=== PATIENT | male | born 1945 | race African-American/Black ===

== ENCOUNTER 2021-07-12 14:25 | Observation (INO) ==
[~2021-07-12 14:25] MED LIST: LORazepam 2 MG/1 ML VIAL ONE
[2021-07-12] MEDS ORDERED: SODIUM CHLORIDE 0.9% 1,000 ML IV STA (15:12)
[2021-07-12 15:27] LABS: Basophils % 0.3 % (0.0-0.8); Eosinophils % 0.3 % (0.00-10.9); Hematocrit 33.7 VOL% (42.0-52.0); Hemoglobin 11.2 GM/DL (14.0-18.0); Immature Granulocytes % 0.6 %; Immature Granulocytes Absolute 0.04 #; Lymphocytes # 0.6 10*3/uL (1.4-4.0); Lymphocytes % 8.7 % (21.2-54.2); Mean Corpuscular HGB Conc 33.2 GM/DL (32-36); Mean Corpuscular Volume 90.6 FL (87-102); Mean Platelet Volume 10.5 FL (9.6-12.0); Monocytes % 9.4 % (1.7-12.7); Neutrophils % 80.7 % (38.7-73.9); Platelet Count 148 T/CUMM (130-400); Red Blood Count 3.72 MC/CUMM (3.8-5.5); Red Cell Distribution Width 12.6 % (9.3-17.3); White Blood Count 6.5 T/CUMM (4-12)
[2021-07-12 15:32] LABS: INR 0.9; PT Patient Result 10.4 SECS (10.5-12.0); Partial Thromboplastin Time 20.5 SECS (23.8-32.1)
[2021-07-12 15:37] LABS: Alanine Aminotransferase 24 U/L (16-61); Alkaline Phosphatase 227 U/L (45-117); Aspartate Amino Transferase 12 U/L (0-37); Bilirubin,Total < 0.39 MG/DL (0.20-1.00); Blood Urea Nitrogen 25 MG/DL (7-18); Calcium 9.5 MG/DL (8.5-10.1); Carbon Dioxide 26 MMOL/L (21-32); Estimated Glom Filtration Rate 32 ML/MIN; Osmolality,Calculated 298.2 MOS/KG (273-304); Potassium 5.1 MMOL/L (3.5-5.1); Sodium 134 MMOL/L (136-145); Total Protein 7.6 G/DL (6.4-8.2)
[2021-07-12 15:38] LABS: Glucose 587 MG/DL (74-106)
[2021-07-12] MEDS ORDERED: INSULIN REGULAR 100 UNIT/ML IV STA (15:40)
[2021-07-12 15:45] LABS: Carbamazepine (Tegretol) < 0.5 UG/ML (4.0-12.0); Phenytoin (Dilantin) 1.7 UG/ML (10-20); Valproic Acid < 3.0 UG/ML (50-100)
[2021-07-12 16:25] LABS: Bilirubin,Urine Negative (Negative); Blood, Urine Small mg/dL (Negative); Glucose,Urine (UA) >=500 mg/dL (Negative); Ketones,Urine Negative (Negative); Mucus,Urine Occasional /LPF (Occasional); Nitrite,Urine Negative (Negative); Protein,Urine 30 MG/DL; RBC,Urine 2 /HPF (0-4); Urine Appearance CLEAR (Clear); Urine Color Straw (Yellow); Urine Specific Gravity 1.018 (1.001-1.035); Urine Urobilinogen < 2.0 EU/DL (0.2-1.0)
[2021-07-12 16:42] LABS: Barbiturates Screen,Urine Negative (Negative); Benzodiazepines Screen,Urine Positive (Negative); Cannabinoid Screen,Urine Negative (Negative); Opiate Screen,Urine Negative (Negative); Phencyclidine Screen,Urine Negative (Negative)
[2021-07-12] MEDS ORDERED: levETIRAcetam 500 MG/5 ML VIAL IV ONE (17:02)
[2021-07-12] MEDS ORDERED: DEXTROSE 50% 25 GM/50 ML VIAL IV PRN ×2 (18:36)
[2021-07-12] MEDS ORDERED: hydrALAZINE 20 MG/1 ML VIAL IV PRN (18:36)
[2021-07-12] MEDS ORDERED: GLUCAGON 1 MG VIAL IM PRN ×2 (18:36)
[2021-07-12] MEDS ORDERED: DOCUSATE SODIUM 100 MG CAPSULE PO PRN (18:36)
[2021-07-12] MEDS ORDERED: LORazepam 2 MG/1 ML VIAL IV PRN (18:42)
[2021-07-12 19:10] LABS: % Iron Saturation 16.8 % (18-50)
[2021-07-12 19:14] LABS: Folate 16.45 NG/ML (5.38-24.0)
[2021-07-12] MEDS: SODIUM CHLORIDE 0.9% 1,000 ML IV SCH (19:50)
[2021-07-12] MEDS ORDERED: ENOXAPARIN 30 MG/0.3 ML SYRINGE SUBCUT SCH (21:00)
[2021-07-12] MEDS: levETIRAcetam 500 MG TABLET PO SCH (21:20)
[2021-07-12] MEDS: INSULIN REGULAR 100 UNIT/ML SUBCUT SCH (21:21)
[2021-07-13 05:52] LABS: Basophils % 0.2 % (0.0-0.8); Eosinophils # 0.1 10*3/uL (0.0-0.87); Hematocrit 30.8 VOL% (42.0-52.0); Hemoglobin 10.7 GM/DL (14.0-18.0); Immature Granulocytes % 0.3 %; Immature Granulocytes Absolute 0.02 #; Lymphocytes # 1.1 10*3/uL (1.4-4.0); Lymphocytes % 17.9 % (21.2-54.2); Mean Corpuscular HGB Conc 34.7 GM/DL (32-36); Mean Corpuscular Volume 89.3 FL (87-102); Mean Platelet Volume 10.4 FL (9.6-12.0); Monocytes % 13.4 % (1.7-12.7); Neutrophils % 67.2 % (38.7-73.9); Platelet Count 135 T/CUMM (130-400); Red Blood Count 3.45 MC/CUMM (3.8-5.5); Red Cell Distribution Width 12.7 % (9.3-17.3); White Blood Count 6.2 T/CUMM (4-12)
[2021-07-13 06:17] LABS: Albumin 2.4 G/DL (3.4-5.0); Bilirubin,Total 0.7 MG/DL (0.20-1.00); Calcium 8.9 MG/DL (8.5-10.1); Potassium 3.3 MMOL/L (3.5-5.1)
[2021-07-13 06:38] LABS: Risk Ratio 2.06; VLDL Cholesterol 15.6 MG/DL
[2021-07-13] MEDS: levETIRAcetam 500 MG TABLET PO SCH (08:58)
[2021-07-13] MEDS ORDERED: amLODIPine 10 MG TABLET PO SCH (09:00)
[2021-07-13] MEDS ORDERED: PANTOPRAZOLE 40 MG TABLET PO SCH (09:00)
[2021-07-13] MEDS ORDERED: amLODIPine 5 MG TABLET PO SCH (09:00)
[2021-07-13] MEDS: INSULIN REGULAR 100 UNIT/ML SUBCUT SCH ×2 (10:51→12:38)
[2021-07-13] MEDS: SODIUM CHLORIDE 0.9% 1,000 ML IV SCH (10:52)
[2021-07-13 16:27] VITALS: BP 145/61
== END 2021-07-13 16:27 ==
LOC: N.3E 14:25 → N.ED 14:25 → SUATTDRO 18:36 → N.3E 20:00
PROVIDERS: ADMIT Internal Medicine; ATTEND Internal Medicine

== ENCOUNTER 2021-07-21 14:30 | Inpatient (IN) ==
[2021-07-21 15:05] LABS: Basophils % 0.3 % (0.0-0.8); Eosinophils % 0.4 % (0.00-10.9); Hematocrit 34.5 VOL% (42.0-52.0); Hemoglobin 11.3 GM/DL (14.0-18.0); Immature Granulocytes % 0.6 %; Immature Granulocytes Absolute 0.05 #; Lymphocytes # 0.9 10*3/uL (1.4-4.0); Lymphocytes % 11.4 % (21.2-54.2); Mean Corpuscular HGB Conc 32.8 GM/DL (32-36); Mean Platelet Volume 9.4 FL (9.6-12.0); Monocytes % 6.5 % (1.7-12.7); Neutrophils % 80.8 % (38.7-73.9); Platelet Count 185 T/CUMM (130-400); Red Blood Count 3.75 MC/CUMM (3.8-5.5); Red Cell Distribution Width 12.5 % (9.3-17.3); White Blood Count 7.7 T/CUMM (4-12)
[2021-07-21] MEDS ORDERED: LEVETIRACETAM IV ONE ×2 (15:07→15:30)
[2021-07-21] MEDS ORDERED: SODIUM CHLORIDE 0.9% IV ONE ×2 (15:07→15:30)
[2021-07-21 15:16] LABS: PT Patient Result 11.1 SECS (10.5-12.0); Partial Thromboplastin Time 21.9 SECS (23.8-32.1)
[2021-07-21] MEDS ORDERED: LACTATED RINGERS 1,000 ML IV ONE (15:20)
[2021-07-21 15:32] LABS: Alanine Aminotransferase 30 U/L (16-61); Albumin 2.9 G/DL (3.4-5.0); Alkaline Phosphatase 241 U/L (45-117); Aspartate Amino Transferase 38 U/L (0-37); Bilirubin,Total < 0.39 MG/DL (0.20-1.00); Blood Urea Nitrogen 22 MG/DL (7-18); Calcium 8.8 MG/DL (8.5-10.1); Carbon Dioxide 22 MMOL/L (21-32); Estimated Glom Filtration Rate 34 ML/MIN; Osmolality,Calculated 308.8 MOS/KG (273-304); Potassium 4.8 MMOL/L (3.5-5.1); Sodium 130 MMOL/L (136-145); Total Protein 6.7 G/DL (6.4-8.2)
[2021-07-21 15:38] LABS: Glucose 926 MG/DL (74-106)
[2021-07-21] MEDS ORDERED: LORazepam 2 MG/1 ML VIAL ONE (15:38)
[2021-07-21 15:51] LABS: ABG Base Excess -8.4 MMOL/L (-2.5-2.5); ABG HCO3 17.8 MMOL/L (20-26); ABG Oxygen Saturation 99.3 % (95-100); ABG PCO2 46.3 MM HG (35-48); ABG PH 7.229 (7.35-7.45); ABG TCO2 17.4 MMOL/L (23-27)
[2021-07-21] MEDS ORDERED: ROCURONIUM 100 MG/10 ML VIAL IV ONE (16:03)
[2021-07-21] MEDS ORDERED: ETOMIDATE 20 MG/10 ML VIAL IV ONE (16:04)
[2021-07-21] MEDS ORDERED: LORazepam 2 MG/1 ML VIAL IV STA (16:12)
[2021-07-21] MEDS ORDERED: GLUCAGON 1 MG VIAL IM PRN (16:12)
[2021-07-21] MEDS ORDERED: LACTATED RINGERS 2,000 ML IV ONE (16:14)
[2021-07-21] MEDS ORDERED: ALBUTEROL 2.5 MG/3 ML NEB RESP TX PRN (16:15)
[2021-07-21] MEDS ORDERED: INSULIN LISPRO 100 UNIT/ML SUBCUT SCH (17:00)
[2021-07-21] MEDS ORDERED: METOPROLOL TARTRATE 5 MG/5 ML VIAL IV PRN (17:05)
[2021-07-21 17:08] LABS: Bacteria,Urine Occasional /HPF (Few); Bilirubin,Urine Negative (Negative); Blood, Urine Moderate mg/dL (Negative); Glucose,Urine (UA) >=500 mg/dL (Negative); Ketones,Urine Negative (Negative); Nitrite,Urine Negative (Negative); Protein,Urine 100 MG/DL; RBC,Urine 29 /HPF (0-4); Squamous Epithelial Cell,Urine Occasional /HPF (0-10); Urine Appearance Slightly Hazy (Clear); Urine Color Straw (Yellow); Urine Specific Gravity 1.018 (1.001-1.035); Urine Urobilinogen < 2.0 EU/DL (0.2-1.0)
[2021-07-21 17:36] LABS: ABG Base Excess -0.5 MMOL/L (-2.5-2.5); ABG Oxygen Saturation 99.6 % (95-100); ABG PH 7.364 (7.35-7.45)
[2021-07-21] MEDS: ENOXAPARIN 30 MG/0.3 ML SYRINGE SUBCUT SCH (18:17)
[2021-07-21] MEDS: PANTOPRAZOLE 40 MG VIAL IV SCH (18:18)
[2021-07-21] MEDS: INSULIN LISPRO 100 UNIT/ML SUBCUT SCH ×3 (18:53→23:51)
[2021-07-21] MEDS: INSULIN GLARGINE 100 UNIT/ML SUBCUT SCH ×2 (18:53→21:06)
[2021-07-21 19:10] LABS: Calcium 9.8 MG/DL (8.5-10.1); Osmolality,Calculated 304.4 MOS/KG (273-304)
[2021-07-21] MEDS ORDERED: INSULIN GLARGINE 100 UNIT/ML SUBCUT SCH (21:00)
[2021-07-21 23:40] LABS: Calcium 9.7 MG/DL (8.5-10.1); Osmolality,Calculated 290.1 MOS/KG (273-304); Potassium 4.4 MMOL/L (3.5-5.1)
[2021-07-22] MEDS: DEXTROSE 5% LACTATED RINGERS 1,000 ML IV SCH ×2 (02:55→09:57)
[2021-07-22] MEDS: DEXTROSE 50% 25 GM/50 ML SYRINGE IV PRN ×3 (04:29→23:37)
[2021-07-22 04:30] LABS: ABG Base Excess 4.7 MMOL/L (-2.5-2.5); ABG HCO3 28.7 MMOL/L (20-26); ABG Oxygen Saturation 99.5 % (95-100); ABG PCO2 25.9 MM HG (35-48); ABG TCO2 22.5 MMOL/L (23-27)
[2021-07-22 04:32] LABS: ABG PH 7.601 (7.35-7.45)
[2021-07-22] MEDS: INSULIN LISPRO 100 UNIT/ML SUBCUT SCH ×5 (04:45→19:19)
[2021-07-22 05:18] LABS: Calcium 9.7 MG/DL (8.5-10.1); Potassium 3.9 MMOL/L (3.5-5.1)
[2021-07-22 07:56] LABS: ABG Base Excess 1.9 MMOL/L (-2.5-2.5); ABG HCO3 26.1 MMOL/L (20-26); ABG Oxygen Saturation 98.9 % (95-100); ABG PCO2 44.6 MM HG (35-48); ABG PH 7.394 (7.35-7.45); ABG TCO2 24.2 MMOL/L (23-27); Allen Test Positive; Pt O2 Delivery Device Ventilator
[2021-07-22] MEDS: LACTATED RINGERS 1,000 ML IV SCH ×2 (10:02→17:14)
[2021-07-22] MEDS: amLODIPine 10 MG TABLET PO SCH (10:40)
[2021-07-22] MEDS ORDERED: DEXTROSE 50% 25 GM/50 ML SYRINGE IV PRN (12:58)
[2021-07-22 13:05] LABS: Calcium 9.3 MG/DL (8.5-10.1); Potassium 3.9 MMOL/L (3.5-5.1)
[2021-07-22] MEDS: ENOXAPARIN 30 MG/0.3 ML SYRINGE SUBCUT SCH (16:19)
[2021-07-22] MEDS: PANTOPRAZOLE 40 MG VIAL IV SCH (16:19)
[2021-07-22] MEDS: INSULIN GLARGINE 100 UNIT/ML SUBCUT SCH (21:14)
[2021-07-23] MEDS: LACTATED RINGERS 1,000 ML IV SCH (00:14)
[2021-07-23] MEDS: INSULIN LISPRO 100 UNIT/ML SUBCUT SCH ×7 (00:14→23:10)
[2021-07-23] MEDS: DEXTROSE 5% LACTATED RINGERS 1,000 ML IV SCH ×2 (00:30→11:30)
[2021-07-23 04:46] LABS: Basophils % 0.2 % (0.0-0.8); Eosinophils % 0.3 % (0.00-10.9); Hematocrit 34.2 VOL% (42.0-52.0); Hemoglobin 11.4 GM/DL (14.0-18.0); Immature Granulocytes % 0.5 %; Immature Granulocytes Absolute 0.06 #; Lymphocytes # 1.7 10*3/uL (1.4-4.0); Lymphocytes % 14.4 % (21.2-54.2); Mean Corpuscular HGB Conc 33.3 GM/DL (32-36); Mean Corpuscular Volume 89.8 FL (87-102); Mean Platelet Volume 9.4 FL (9.6-12.0); Monocytes % 8.3 % (1.7-12.7); Neutrophils % 76.3 % (38.7-73.9); Platelet Count 184 T/CUMM (130-400); Red Blood Count 3.81 MC/CUMM (3.8-5.5); Red Cell Distribution Width 12.8 % (9.3-17.3); White Blood Count 11.5 T/CUMM (4-12)
[2021-07-23 05:01] LABS: Calcium 8.8 MG/DL (8.5-10.1); Osmolality,Calculated 286.8 MOS/KG (273-304); Potassium 3.6 MMOL/L (3.5-5.1)
[2021-07-23] MEDS ORDERED: POTASSIUM CHLORIDE RIDER 10 MEQ/100 ML PREMIX IV PRN (06:53)
[2021-07-23] MEDS ORDERED: MAGNESIUM SULF RIDER 2 GM/50 ML PREMIX IV PRN (06:53)
[2021-07-23] MEDS ORDERED: MAGNESIUM SULF RIDER 4 GM/100 ML PREMIX IV PRN (06:53)
[2021-07-23] MEDS: amLODIPine 10 MG TABLET PO SCH (09:49)
[2021-07-23] MEDS: ENOXAPARIN 30 MG/0.3 ML SYRINGE SUBCUT SCH (17:25)
[2021-07-23] MEDS: PANTOPRAZOLE 40 MG VIAL IV SCH (17:50)
[2021-07-23] MEDS: levETIRAcetam 500 MG TABLET PO SCH (20:48)
[2021-07-23] MEDS: INSULIN GLARGINE 100 UNIT/ML SUBCUT SCH (20:48)
[2021-07-24] MEDS: INSULIN LISPRO 100 UNIT/ML SUBCUT SCH ×5 (03:23→20:40)
[2021-07-24 05:39] LABS: Calcium 8.7 MG/DL (8.5-10.1); Osmolality,Calculated 287.7 MOS/KG (273-304); Potassium 3.4 MMOL/L (3.5-5.1)
[2021-07-24] MEDS ORDERED: POTASSIUM CHLORIDE 20 MEQ TABLET PO ONE (07:52)
[2021-07-24] MEDS: amLODIPine 10 MG TABLET PO SCH (08:11)
[2021-07-24] MEDS: levETIRAcetam 500 MG TABLET PO SCH (08:11)
[2021-07-24] MEDS ORDERED: amLODIPine 10 MG TABLET PO SCH (09:00)
[2021-07-24] MEDS: PANTOPRAZOLE 40 MG VIAL IV SCH (16:16)
[2021-07-24] MEDS: ENOXAPARIN 30 MG/0.3 ML SYRINGE SUBCUT SCH (16:19)
[2021-07-24] MEDS: levETIRAcetam 250 MG TABLET PO SCH (20:38)
[2021-07-24] MEDS: INSULIN GLARGINE 100 UNIT/ML SUBCUT SCH (20:40)
[2021-07-25] MEDS: INSULIN LISPRO 100 UNIT/ML SUBCUT SCH ×4 (00:36→11:24)
[2021-07-25 05:09] LABS: Basophils % 0.3 % (0.0-0.8); Eosinophils # 0.1 10*3/uL (0.0-0.87); Eosinophils % 1.5 % (0.00-10.9); Hematocrit 31.2 VOL% (42.0-52.0); Hemoglobin 10.5 GM/DL (14.0-18.0); Immature Granulocytes % 0.7 %; Immature Granulocytes Absolute 0.05 #; Lymphocytes % 13.3 % (21.2-54.2); Mean Corpuscular HGB Conc 33.7 GM/DL (32-36); Mean Corpuscular Volume 88.1 FL (87-102); Mean Platelet Volume 9.6 FL (9.6-12.0); Neutrophils % 75.2 % (38.7-73.9); Platelet Count 167 T/CUMM (130-400); Red Blood Count 3.54 MC/CUMM (3.8-5.5); Red Cell Distribution Width 12.2 % (9.3-17.3); White Blood Count 7.5 T/CUMM (4-12)
[2021-07-25 05:24] LABS: Calcium 8.3 MG/DL (8.5-10.1); Potassium 3.6 MMOL/L (3.5-5.1)
[2021-07-25] MEDS: DEXTROSE 5% LACTATED RINGERS 1,000 ML IV SCH ×3 (07:38→07:40)
[2021-07-25] MEDS: levETIRAcetam 250 MG TABLET PO SCH (09:25)
[2021-07-25] MEDS: amLODIPine 10 MG TABLET PO SCH (09:25)
[2021-07-25 11:27] VITALS: BP 147/47
[2021-07-25] MEDS ORDERED: ENOXAPARIN 40 MG/0.4 ML SYRINGE SUBCUT SCH (16:30)
== END 2021-07-25 15:53 | disposition home or self-care (01) | DRG 100 ==
LOC: EDUNIT# → EDBD → N.ED 14:30 → SUATTDRO 16:15 → N.EDINP 16:15 → N.ICU 17:24 → N.5E 07-23 12:15
PROVIDERS: ADMIT Internal Medicine; ATTEND Internal Medicine